=== PATIENT | female | born 1975 | race Caucasian/White ===

== ENCOUNTER → 2017-01-04 | Outpatient (CLI) | payer OTHER ==
[~2017-01-04] MED LIST: GADAVIST IV PRN
--- NOTE | 2017-01-04 12:57 | DIAGNOSTIC IMAGING REPORT ---
MRV HEAD WITHOUT CONTRAST CLINICAL HISTORY: New onset headaches. Evaluate for dural venous sinus thrombosis. COMPARISON STUDY: No previous studies for comparison. FINDINGS: Magnetic resonance venous angiography was performed. Both the source and projection images were reviewed. No dural sinus thrombus is visualized. IMPRESSION: No MRI evidence of dural venous sinus thrombosis. Electronically signed by: Milton Randolph M.D. 01/04/2017 12:56 PM Dictated Date/Time: 01/04/2017 12:55 PM
--- NOTE | 2017-01-04 13:05 | DIAGNOSTIC IMAGING REPORT ---
MRI OF THE BRAIN COMBO CLINICAL HISTORY: Headache. COMPARISON STUDY: No priors. TECHNIQUE: MRI of the brain was performed utilizing various T1 and T2-weighted sequences in the axial, sagittal, and coronal planes. Contrast-enhanced sequences were acquired following the administration of 12.4 cc of Gadavist. FINDINGS: Brain parenchyma: There are scattered (less than 5) tiny foci of T2 signal abnormality within the subfrontal white matter. The brain parenchyma is otherwise normal in appearance. There is no hemorrhage or mass effect. There is no restricted diffusion to suggest acute ischemia. No enhancing mass lesion is identified on the postcontrast images. [place]-white matter differentiation is preserved. No extra-axial fluid collection is seen. The cerebellar tonsils are normal in configuration. Ventricles, sulci, and cisterns: Normal in configuration. Pituitary and sella: Unremarkable. Intracranial vasculature: Normal flow voids are maintained at the skull base. Orbits: The bony orbits are grossly intact. Orbital contents are normal in appearance. Sinuses and mastoids: Clear. Calvarium: Unremarkable. Cervical cord: Partially visualized cervical spinal cord is normal in morphology and signal intensity. IMPRESSION: 1. No acute intracranial traumatic. 2. There are scattered (less than 5) tiny foci of T2 signal abnormality within the subfrontal white matter. This is of indeterminant, if any, clinical significance and although nonspecific has been described in the setting of migraine headache. This could also represent minimal microangiopathic change. Clinical correlation will be required. Electronically signed by: Marcio Padgett M.D. 01/04/2017 1:04 PM Dictated Date/Time: 01/04/2017 12:59 PM
== END | disposition home or self-care (01) ==
LOC: C.MRIBC 11:48
PROVIDERS: ATTEND Psychiatry & Neurology Neurology
DX: R51 Headache (principal); R90.82 White matter disease, unspecified